=== PATIENT | female | born 1950 | race African-American/Black ===

== ENCOUNTER 2020-04-07 17:42 | Emergency (ER) | payer MEDICARE, MEDICAID ==
[~2020-04-07] VITALS: Ht 162.6 cm; Wt 71.7 kg
[~2020-04-07 17:42] MED LIST: ALDACTONE25 MG PO; AMBIEN 10 MG TA10 MG PO; AMBIEN 5 MG TABL5 M1 PO; ATIVAN0.5 MG PO; ATIVAN1 MG PO; AZITHROMYCIN 2250 MG PO; CEFPODOXIME PR200 M1 PO; COREG6.25 MG PO; COZAAR 25 MG TA25 M1 PO; DARVOCET-N 1001 EACH PO; ESZOPICLONE1 MG; FUROSEMIDE 40 M40 M1 PO; HYDROCODONE-AP1 EAC6 PO; MELATONIN1 MG PO; METFORMIN HCL500 MG PO; MIRALAX17 GM PO; MOBIC7.5 MG PO; NOHOMEMEDICATIONS; NORCO 5-325 TA1 EACH PO; PERCOCET PO; PREDNISONE 20 M20 MG PO; QUETIAPINE FUM100 MG PO; REMERON15 MG PO; SENNA LAX8.6 MG PO; TRAZODONE HCL50 MG PO; XANAX 0.5 MG0.5 MG PO; ZESTRIL5 MG PO; ZOFRAN ODT4 MG SUBLING
[2020-04-07 18:30] LABS: ABSOLUTE LYMPHOCYTES 2.8 thou/uL (0.8-5.3); ABSOLUTE MONOCYTES 0.5 thou/uL (0.0-1.2); ABSOLUTE NEUTROPHILS 2.9 thou/uL (1.6-8.1); BASOPHILS 0.5 %; MPV 10.5 fl. (7.2-11.1); RDW-CV 17.5 % (10.5-14.5); WBC 6.2 thou/uL (4.0-11.0)
[2020-04-07 18:32] LABS: ABSOLUTE EOSINOPHILS 0.1 thou/uL (0.0-0.7); HEMATOCRIT 36.3 % (37.0-47.0); HEMOGLOBIN 11.7 gm/dL (12.0-15.0); LYMPHOCYTES 44.5 %; MCH 24.5 pg (26.0-34.0); MCHC 32.3 g/dL (28.0-37.0); MCV 75.8 fL (80.0-100.0); MONOCYTES 7.9 %; NUCLEATED RBCS 0 /100WBC; PLATELET COUNT* 161 thou/uL (150-400); POLYS 46.1 %; RBC 4.79 mil/uL (4.20-5.00)
[2020-04-07 18:36] LABS: APTT 26.6 Seconds (25.0-31.3); PROTIME 10.8 Seconds (9.20-11.50)
[2020-04-07 18:40] LABS: CALCIUM 9.5 mg/dL (8.5-10.1); CREATININE 0.8 mg/dL (0.6-1.3); POTASSIUM 3.7 mmol/L (3.5-5.1)
[2020-04-07 18:54] LABS: ALBUMIN 4.1 g/dL (3.4-5.0); CK-MB MASS 1.6 ng/mL (<0.5-3.6); MAGNESIUM 2.1 mg/dL (1.8-2.4); TOTAL BILIRUBIN 0.2 mg/dL (<0.1-1.0); TOTAL PROTEIN 8.6 g/dL (6.4-8.2)
[2020-04-07 19:49] LABS: PLATELET ESTIMATE ADEQUATE; TARGET CELLS 1+
[2020-04-07 19:52] LABS: MICROCYTES 2+
[2020-04-07 19:53] LABS: HYPOCHROMASIA 2+
[2020-04-07 19:54] LABS: ANISOCYTOSIS 2+
[2020-04-07 21:11] LABS: URINE BILIRUBIN NEGATIVE (Negative); URINE BLOOD NEGATIVE (Negative); URINE CLARITY CLEAR; URINE COLOR YELLOW; URINE GLUCOSE-RANDOM NEGATIVE (Negative); URINE KETONES NEGATIVE (Negative); URINE LEUKOCYTES-REFLEX 1+ (Negative); URINE NITRITE-REFLEX NEGATIVE (Negative); URINE PROTEIN NEGATIVE (Negative); URINE UROBILINOGEN 0.2 E.U./dl (0.2-1.0)
[2020-04-07 21:30] LABS: CASTS None Seen /LPF (None Seen); SQUAMOUS 4-10 Moderate /LPF (0-3)
[2020-04-07 21:31] LABS: URINE RBC 0-2 Rare /HPF (0-2); URINE WBC-REFLEX 0-5 Rare /HPF (0-5)
[2020-04-07 21:32] LABS: BACTERIA-REFLEX 1-9 Few /HPF (None Seen); CRYSTALS None Seen /LPF (None Seen)
[2020-04-07] MEDS ORDERED: AMOXIL 875 MG875 M2 PO (21:47)
[2020-04-07 21:49] LABS: INFLUENZA A ANTIGEN Negative (Negative); INFLUENZA B ANTIGEN Negative (Negative)
[2020-04-07 21:56] VITALS: BP 193/90
--- NOTE | 2020-04-08 11:03 | EKG ---
[place] [address] ELECTROCARDIOGRAM REPORT Name: FAUSTO FONSECA Room: [facility]#: [id number] Admission: 04/07/20 Attend Phys: Discharge: 04/07/20 Date of : 52 Date of Service: 04/07/20 180 Report #: [id number] THIS REPORT FOR: //name// [facility] ED Test Date: 2020-04-07 Test Time: 18:03:36 Pat Name: FAUSTO FONSECA Department: Room: Gender: Client Service Manager: [facility] : 1950 Requested By: Greg Ayala Order Number: [id number] MD: Corky Menendez Measurements Intervals [place] Rate: 69 P: 48 [place]: 165 QRS: 25 QRSD: 82 T: 49 QT: 384 QTc: 412 Interpretive Statements Sinus rhythm Compared to ECG 08/14/2016 11:09:08 No significant changes Electronically Signed On 04-08-2020 11:03:16 [employer] by Corky Menendez [email or web address] <ELECTRONICALLY SIGNED> By: Corky Menendez MD, [facility] 04/08/20 110 02 02 Corky Menendez MD, [facility] /EPI
== END 2020-04-07 21:46 | disposition still patient (30) ==
LOC: M.ERS 17:42
PROVIDERS: Emergency Medicine; Personal Emergency Response Attendant
DX: J18.9 Pneumonia, unspecified organism (principal); F41.9 Anxiety disorder, unspecified; Z20.822 Contact with and (suspected) exposure to COVID-19; E03.9 Hypothyroidism, unspecified; I50.9 Heart failure, unspecified; Z90.49 Acquired absence of other specified parts of digestive tract; Z86.718 Personal history of other venous thrombosis and embolism; Z88.8 Allergy status to other drugs, medicaments and biological substances

== ENCOUNTER → 2020-07-03 | Outpatient (CLI) | payer MEDICARE, MEDICAID ==
[~2020-07-03] MED LIST changes: +AMOXIL 875 MG875 M2 PO
== END ==
LOC: M.CT 07:19
PROVIDERS: ATTEND Nurse Practitioner Family
DX: M47.812 Spondylosis without myelopathy or radiculopathy, cervical region (principal); M25.78 Osteophyte, vertebrae; E04.9 Nontoxic goiter, unspecified

== ENCOUNTER 2020-07-26 13:52 | Emergency (ER) | payer MEDICARE, MEDICAID ==
[~2020-07-26] VITALS: Ht 162.6 cm; Wt 77.1 kg
[2020-07-26] MEDS ORDERED: COZAAR 25 MG TA25 M1 PO (14:08)
[2020-07-26] MEDS ORDERED: QUETIAPINE FUM400 M1 PO (14:08)
[2020-07-26] MEDS ORDERED: HYDROCHLOROTH12.5 M1 PO (14:09)
[2020-07-26 14:37] LABS: ABSOLUTE LYMPHOCYTES 1.4 thou/uL (0.8-5.3); ABSOLUTE MONOCYTES 0.4 thou/uL (0.0-1.2); ABSOLUTE NEUTROPHILS 4.2 thou/uL (1.6-8.1); BASOPHILS 0.6 %; EOSINOPHILS 0.1 %; HEMATOCRIT 38.3 % (37.0-47.0); HEMOGLOBIN 12.4 gm/dL (12.0-15.0); LYMPHOCYTES 23.1 %; MCH 24.8 pg (26.0-34.0); MCHC 32.4 g/dL (28.0-37.0); MCV 76.5 fL (80.0-100.0); MONOCYTES 7.3 %; MPV 10.1 fl. (7.2-11.1); NUCLEATED RBCS 0 /100WBC; PLATELET COUNT* 162 thou/uL (150-400); POLYS 68.9 %; RBC 5.01 mil/uL (4.20-5.00); RDW-CV 18.2 % (10.5-14.5); WBC 6.1 thou/uL (4.0-11.0)
[2020-07-26 14:45] LABS: CALCIUM 9.1 mg/dL (8.5-10.1); CREATININE 0.9 mg/dL (0.6-1.3); POTASSIUM 3.3 mmol/L (3.5-5.1)
[2020-07-26 14:49] LABS: ALBUMIN 4.4 g/dL (3.4-5.0); TOTAL BILIRUBIN 0.4 mg/dL (<0.1-1.0); TOTAL PROTEIN 9.2 g/dL (6.4-8.2)
[2020-07-26 17:18] LABS: URINE BILIRUBIN NEGATIVE (Negative); URINE BLOOD NEGATIVE (Negative); URINE CLARITY CLEAR; URINE COLOR YELLOW; URINE GLUCOSE-RANDOM NEGATIVE (Negative); URINE KETONES 2+ (Negative); URINE LEUKOCYTES-REFLEX NEGATIVE (Negative); URINE NITRITE-REFLEX NEGATIVE (Negative); URINE PROTEIN NEGATIVE (Negative); URINE SPECIFIC GRAVITY <= 1.005 (1.005-1.030); URINE UROBILINOGEN 0.2 E.U./dl (0.2-1.0)
[2020-07-26] MEDS ORDERED: CITRATE OF MAG296 M1 PO (17:26)
[2020-07-26 17:44] VITALS: BP 176/102
--- NOTE | 2020-07-27 14:15 | EKG ---
[place] [address] ELECTROCARDIOGRAM REPORT Name: FAUSTO FONSECA Room: [facility]#: [id number] Admission: 07/26/20 Attend Phys: Discharge: 07/26/20 Date of : 52 Date of Service: 07/26/20 1420 Report #: [id number] THIS REPORT FOR: //name// [facility] ED Test Date: 2020-07-26 Test Time: 14:20:00 Pat Name: FAUSTO FONSECA Department: Room: Gender: Customer Counter Representative: : 1950 Requested By: Coleman Bennett Order Number: [id number] MD: Corky Menendez Measurements Intervals [place] Rate: 94 P: 80 MA: 152 QRS: 53 QRSD: 81 T: 68 QT: 350 QTc: 438 Interpretive Statements Sinus rhythm Probable left atrial enlargement Borderline T wave abnormalities Compared to ECG 04/07/2020 18:03:36 T-wave abnormality now present Electronically Signed On 07-27-2020 14:15:41 CDT by Corky Menendez [email or web address] <ELECTRONICALLY SIGNED> By: Corky Menendez MD, FACC 07/27/20 1415 1420 1420 Corky Menendez MD, FAC /EPI
== END 2020-07-26 17:45 | disposition home or self-care (01) ==
LOC: M.ERS 13:52
PROVIDERS: Physician Assistant
DX: K59.00 Constipation, unspecified (principal); E03.9 Hypothyroidism, unspecified; I50.9 Heart failure, unspecified; Z86.718 Personal history of other venous thrombosis and embolism; Z90.49 Acquired absence of other specified parts of digestive tract; Z88.8 Allergy status to other drugs, medicaments and biological substances

== ENCOUNTER → 2020-10-07 | Outpatient (CLI) | payer MEDICARE, MEDICAID ==
[~2020-10-07] MED LIST changes: +CITRATE OF MAG296 M1 PO; +HYDROCHLOROTH12.5 M1 PO; +QUETIAPINE FUM400 M1 PO
== END ==
LOC: M.ULTRA 09-16 08:00
PROVIDERS: ATTEND Specialist
DX: E04.2 Nontoxic multinodular goiter (principal)